=== PATIENT | female | born 1975 | race Hispanic/Latino ===

== ENCOUNTER 2020-10-04 07:27 | Inpatient (IN) | payer SELFPAY ==
[2020-10-04] MEDS ORDERED: hydrALAZINE 20 MG/ML VIAL SLOW IVP PRN (08:27)
[2020-10-04] MEDS ORDERED: Ondansetron PF 4 MG/2 ML Vial IVP PRN (08:27)
[2020-10-04] MEDS ORDERED: Sodium Chloride 0.65% Nasal 44 ML BOT EA NARE PRN (08:27)
[2020-10-04] MEDS ORDERED: Dextrose 50% Abboject 50 ML SYRINGE SLOW IVP PRN (08:27)
[2020-10-04] MEDS ORDERED: Loperamide HCl 2 MG CAP PO PRN (08:27)
[2020-10-04] MEDS ORDERED: Loratadine 10 MG TAB PO PRN (08:27)
[2020-10-04] MEDS ORDERED: Senokot S 8.6-50 MG TAB PO PRN (08:27)
[2020-10-04] MEDS ORDERED: Acetaminophen 325 MG TAB PO PRN (08:27)
[2020-10-04] MEDS ORDERED: HYDROcodone/Acetaminophen 5/325 mg Tablet PO PRN (08:27)
[2020-10-04] MEDS ORDERED: Guaifenesin DM 100-10/5 ML UDCUP PO PRN (08:27)
[2020-10-04] MEDS ORDERED: Benzonatate 100 MG CAP PO PRN (08:27)
[2020-10-04] MEDS ORDERED: Cepastat Lozenges 1 LOZ PO PRN (08:27)
[2020-10-04] MEDS ORDERED: Ondansetron ODT 4 MG TAB PO PRN (08:27)
[2020-10-04] MEDS ORDERED: Calcium Carbonate 500 MG ChewTAB PO PRN (08:27)
[2020-10-04] MEDS ORDERED: Bisacodyl 10 MG SUPP PR PRN (08:27)
[2020-10-04] MEDS ORDERED: Dextrose 5% in Water 1,000 ML IV PRN (08:27)
[2020-10-04] MEDS ORDERED: Zolpidem Tartrate 5 MG TAB PO PRN (08:27)
[2020-10-04] MEDS: Dexamethasone 4 mg/ml Vial SLOW IVP SCH (09:19)
[2020-10-04] MEDS: Enoxaparin Sodium 40 MG/0.4 ML SYRINGE SC SCH (09:19)
[2020-10-04] MEDS: Aspirin 81 mg Enteric Coated Tablet PO SCH (09:19)
[2020-10-04] MEDS: Lisinopril 10 MG TAB PO SCH (09:20)
[2020-10-04 10:06] VITALS: BMI 30.7
[2020-10-04] MEDS ORDERED: Hydrocerin (Eucerin) Cream 120 gm Jar TOP PRN (11:04)
[2020-10-04] MEDS ORDERED: guaiFENesin 100 MG/5 ML UDCUP PO PRN (11:07)
[2020-10-04] MEDS ORDERED: Ventolin HFA Inhaler 60 PUFF INHALER INH PRN (11:11)
[2020-10-04] MEDS: HumaLOG 300 UNITS/3 ML VIAL SC PRN ×3 (12:21→22:05)
[2020-10-04] MEDS ORDERED: REMDESIVIR (EUA) 100 MG in Sodium Chloride 0.9% 250 ML 230 ML IV SCH (13:00)
[2020-10-04] MEDS ORDERED: REMDESIVIR (EUA) 200 MG in Sodium Chloride 0.9% 250 ML 210 ML IV SCH (13:00)
[2020-10-04] MEDS: glipiZIDE 5 MG TAB PO SCH (15:51)
[2020-10-04 20:56] LABS: SARS-CoV-2 PCR by NAA DETECTED (NotDetected)
[2020-10-05] MEDS: HumaLOG 300 UNITS/3 ML VIAL SC PRN ×4 (05:30→21:05)
[2020-10-05 05:49] LABS: ALT (SGPT) 23 U/L (8-55); AST (SGOT) 30 U/L (5-34); Albumin 3.2 g/dL (3.5-5.0); Alkaline Phosphatase 63 U/L (40-110); Anion Gap 16 mmol/L (10-20); BUN (Urea Nitrogen) 19 mg/dL (7.0-18.7); Bilirubin, Total 0.4 mg/dL (0.2-1.2); Calc. Creatinine Clearance 148 mL/min (70-130); Carbon Dioxide 20 mmol/L (22-29); Chloride 105 mmol/L (98-107); Globulin 3.7 g/dL (2.4-3.5); Glucose 226 mg/dL (70-105); Potassium 4.2 mmol/L (3.5-5.1); Protein, Total 6.9 g/dL (6.0-8.3); Sodium 137 mmol/L (136-145)
[2020-10-05 05:55] LABS: Hemoglobin 13.6 g/dL (12.0-15.5); Mean Corpuscular HGB CONC 33.7 g/dL (32.0-36.0); Mean Corpuscular Hemoglobin 30.8 pg (27.0-33.0); Mean Corpuscular Volume 91.6 fl (81.6-98.3); Mean Platelet Volume 10.4 fl (7.4-10.4); Platelet Count 222 10x3/uL (150-450); RBC Distribution Width 12.3 % (11.5-14.5); Red Blood Cell (RBC) Count 4.41 10x6/uL (3.90-5.03); White Blood Cell (WBC) Count 8.1 10x3/uL (3.5-10.5)
[2020-10-05 07:03] LABS: Band 4 % (5-11); Eosinophils 1 % (0-10); Monocytes 12 % (0-10)
[2020-10-05 07:04] LABS: Lymphocytes 8 % (21-51)
[2020-10-05 07:05] LABS: Neutrophil 70 % (42-75); Reactive Lymphocytes 5 % (0-10)
[2020-10-05 07:06] LABS: Platelet Morphology Comment Appears Adequate
[2020-10-05 07:07] LABS: MDiff Complete? YES; Manual Diff?? YES; RBC Morphology Normal
[2020-10-05] MEDS: Aspirin 81 mg Enteric Coated Tablet PO SCH (08:23)
[2020-10-05] MEDS: glipiZIDE 5 MG TAB PO SCH ×2 (08:23→17:07)
[2020-10-05] MEDS: Lisinopril 10 MG TAB PO SCH (08:23)
[2020-10-05] MEDS: Enoxaparin Sodium 40 MG/0.4 ML SYRINGE SC SCH (08:23)
[2020-10-05] MEDS: Dexamethasone 4 mg/ml Vial SLOW IVP SCH (08:24)
[2020-10-05] MEDS: Cholecalciferol 1,000 UNITS (25 MCG) TAB PO SCH (09:58)
[2020-10-05] MEDS: NPH, Human Insulin Isophane 300 UNIT/3 ML VIAL SC SCH ×2 (09:58→21:00)
[2020-10-05] MEDS: Ascorbic Acid 500 mg Chewable Tablet PO SCH (09:58)
[2020-10-05] MEDS: Zinc Sulfate 220 MG CAP PO SCH (09:59)
[2020-10-05] MEDS: REMDESIVIR (EUA) 100 MG in Sodium Chloride 0.9% 250 ML 230 ML IV SCH (12:22)
[2020-10-06] MEDS: HumaLOG 300 UNITS/3 ML VIAL SC PRN ×4 (05:05→21:09)
[2020-10-06 05:27] LABS: ALT (SGPT) 22 U/L (8-55); AST (SGOT) 23 U/L (5-34); Albumin 3.1 g/dL (3.5-5.0); Alkaline Phosphatase 59 U/L (40-110); Bilirubin, Direct 0.2 mg/dL (0.1-0.3); Bilirubin, Total 0.3 mg/dL (0.2-1.2); Protein, Total 6.6 g/dL (6.0-8.3)
[2020-10-06] MEDS: Ascorbic Acid 500 mg Chewable Tablet PO SCH (08:17)
[2020-10-06] MEDS: glipiZIDE 5 MG TAB PO SCH ×2 (08:17→17:58)
[2020-10-06] MEDS: Dexamethasone 4 mg/ml Vial SLOW IVP SCH (08:17)
[2020-10-06] MEDS: Lisinopril 10 MG TAB PO SCH (08:17)
[2020-10-06] MEDS: Aspirin 81 mg Enteric Coated Tablet PO SCH (08:17)
[2020-10-06] MEDS: Enoxaparin Sodium 40 MG/0.4 ML SYRINGE SC SCH (08:17)
[2020-10-06] MEDS: Cholecalciferol 1,000 UNITS (25 MCG) TAB PO SCH (08:17)
[2020-10-06] MEDS: NPH, Human Insulin Isophane 300 UNIT/3 ML VIAL SC SCH ×2 (08:18→21:06)
[2020-10-06] MEDS: Zinc Sulfate 220 MG CAP PO SCH (08:18)
[2020-10-06] MEDS: REMDESIVIR (EUA) 100 MG in Sodium Chloride 0.9% 250 ML 230 ML IV SCH (12:34)
[2020-10-07 05:28] LABS: ALT (SGPT) 18 U/L (8-55); AST (SGOT) 23 U/L (5-34); Albumin 2.9 g/dL (3.5-5.0); Alkaline Phosphatase 62 U/L (40-110); Bilirubin, Direct 0.2 mg/dL (0.1-0.3); Bilirubin, Total 0.3 mg/dL (0.2-1.2); Protein, Total 6.2 g/dL (6.0-8.3)
[2020-10-07] MEDS: glipiZIDE 5 MG TAB PO SCH ×2 (08:14→18:10)
[2020-10-07] MEDS: Ascorbic Acid 500 mg Chewable Tablet PO SCH (08:14)
[2020-10-07] MEDS: NPH, Human Insulin Isophane 300 UNIT/3 ML VIAL SC SCH ×2 (08:15→21:16)
[2020-10-07] MEDS: Zinc Sulfate 220 MG CAP PO SCH (08:15)
[2020-10-07] MEDS: Lisinopril 10 MG TAB PO SCH (08:15)
[2020-10-07] MEDS: Dexamethasone 4 mg/ml Vial SLOW IVP SCH (08:15)
[2020-10-07] MEDS: Aspirin 81 mg Enteric Coated Tablet PO SCH (08:15)
[2020-10-07] MEDS: Enoxaparin Sodium 40 MG/0.4 ML SYRINGE SC SCH (08:15)
[2020-10-07] MEDS: Cholecalciferol 1,000 UNITS (25 MCG) TAB PO SCH (08:15)
[2020-10-07] MEDS: HumaLOG 300 UNITS/3 ML VIAL SC PRN ×3 (13:52→21:17)
[2020-10-07] MEDS: REMDESIVIR (EUA) 100 MG in Sodium Chloride 0.9% 250 ML 230 ML IV SCH (13:52)
[2020-10-08 05:34] LABS: ALT (SGPT) 24 U/L (8-55); AST (SGOT) 23 U/L (5-34); Albumin 2.8 g/dL (3.5-5.0); Alkaline Phosphatase 58 U/L (40-110); Bilirubin, Direct 0.2 mg/dL (0.1-0.3); Bilirubin, Total 0.3 mg/dL (0.2-1.2); Protein, Total 5.8 g/dL (6.0-8.3)
[2020-10-08] MEDS: glipiZIDE 5 MG TAB PO SCH ×2 (08:22→17:25)
[2020-10-08] MEDS: Enoxaparin Sodium 40 MG/0.4 ML SYRINGE SC SCH (08:23)
[2020-10-08] MEDS: Ascorbic Acid 500 mg Chewable Tablet PO SCH (08:23)
[2020-10-08] MEDS: NPH, Human Insulin Isophane 300 UNIT/3 ML VIAL SC SCH ×2 (08:23→21:05)
[2020-10-08] MEDS: Dexamethasone 4 mg/ml Vial SLOW IVP SCH (08:23)
[2020-10-08] MEDS: Zinc Sulfate 220 MG CAP PO SCH (08:23)
[2020-10-08] MEDS: Cholecalciferol 1,000 UNITS (25 MCG) TAB PO SCH (08:23)
[2020-10-08] MEDS: Lisinopril 10 MG TAB PO SCH (08:23)
[2020-10-08] MEDS: Aspirin 81 mg Enteric Coated Tablet PO SCH (08:23)
[2020-10-08] MEDS: REMDESIVIR (EUA) 100 MG in Sodium Chloride 0.9% 250 ML 230 ML IV SCH (13:01)
[2020-10-08] MEDS: HumaLOG 300 UNITS/3 ML VIAL SC PRN ×3 (13:02→21:06)
[2020-10-09] MEDS: Enoxaparin Sodium 40 MG/0.4 ML SYRINGE SC SCH (09:07)
[2020-10-09] MEDS: Lisinopril 10 MG TAB PO SCH (09:07)
[2020-10-09] MEDS: glipiZIDE 5 MG TAB PO SCH ×2 (09:07→15:53)
[2020-10-09] MEDS: Aspirin 81 mg Enteric Coated Tablet PO SCH (09:07)
[2020-10-09] MEDS: NPH, Human Insulin Isophane 300 UNIT/3 ML VIAL SC SCH ×2 (09:07→21:59)
[2020-10-09] MEDS: Zinc Sulfate 220 MG CAP PO SCH (09:07)
[2020-10-09] MEDS: Cholecalciferol 1,000 UNITS (25 MCG) TAB PO SCH (09:07)
[2020-10-09] MEDS: Dexamethasone 4 mg/ml Vial SLOW IVP SCH (09:07)
[2020-10-09] MEDS: Ascorbic Acid 500 mg Chewable Tablet PO SCH (09:07)
[2020-10-09 11:17] LABS: Hemoglobin A1c 13.3 % (4.0-6.0)
[2020-10-09] MEDS: HumaLOG 300 UNITS/3 ML VIAL SC PRN ×3 (12:20→21:59)
[2020-10-10] MEDS: glipiZIDE 5 MG TAB PO SCH ×2 (08:03→16:14)
[2020-10-10] MEDS: Aspirin 81 mg Enteric Coated Tablet PO SCH (08:03)
[2020-10-10] MEDS: Lisinopril 10 MG TAB PO SCH (08:03)
[2020-10-10] MEDS: Ascorbic Acid 500 mg Chewable Tablet PO SCH (08:03)
[2020-10-10] MEDS: Cholecalciferol 1,000 UNITS (25 MCG) TAB PO SCH (08:03)
[2020-10-10] MEDS: Dexamethasone 4 mg/ml Vial SLOW IVP SCH (08:03)
[2020-10-10] MEDS: Zinc Sulfate 220 MG CAP PO SCH (08:03)
[2020-10-10] MEDS: Enoxaparin Sodium 40 MG/0.4 ML SYRINGE SC SCH (08:03)
[2020-10-10] MEDS: NPH, Human Insulin Isophane 300 UNIT/3 ML VIAL SC SCH (08:05)
[2020-10-10] MEDS: HumaLOG 300 UNITS/3 ML VIAL SC PRN ×2 (13:33→17:12)
[2020-10-10 16:48] VITALS: BP 103/67; TEMP 97.7
== END 2020-10-10 18:12 | disposition home or self-care (01) | DRG 177 ==
LOC: CSHTELE 07:54
PROVIDERS: ADMIT Student in an Organized Health Care Education/Training Program; ATTEND Family Medicine
PROC: XW033E5 Introduction of Remdesivir Anti-infective into Peripheral Vein, Percutaneous Approach, New Technology Group 5 (ICD-10-PCS; principal; 2020-10-04)
PROC: 8E0ZXY6 Isolation (ICD-10-PCS; 2020-10-04)
DX: U07.1 COVID-19 (principal); J12.82 Pneumonia due to coronavirus disease 2019; J96.01 Acute respiratory failure with hypoxia; I10 Essential (primary) hypertension; Z79.84 Long term (current) use of oral hypoglycemic drugs; Z79.82 Long term (current) use of aspirin; Z79.899 Other long term (current) drug therapy; Z90.49 Acquired absence of other specified parts of digestive tract; Z83.3 Family history of diabetes mellitus; E11.65 Type 2 diabetes mellitus with hyperglycemia; E66.9 Obesity, unspecified; Z68.30 Body mass index [BMI] 30.0-30.9, adult; T38.0X5A Adverse effect of glucocorticoids and synthetic analogues, initial encounter
CPT/HCPCS: 36415; 36416; 80053; 80076; 82728; 83036; 84145; 85025; 85379; 86140; 87635; 94640; 94760; J1100; J1650; J1815; J7050; U0003; U0005